=== PATIENT | female | born 1960 | race Caucasian/White ===

== ENCOUNTER 2025-01-31 08:10 | Outpatient (REF) | payer MEDICARE, SELFPAY ==
--- NOTE | 2025-01-31 | PFT_ITS ---
Indication: COPD Spirometry FEV1 to FVC 37%; FEV1 1.15 L; FVC 3.08 L. No significant response to bronchodilators noted Lung Volumes Total lung capacity 102% predicted; residual volume 123% predicted Diffusion Capacity DLCO 40% predicted Comparisons None Interpretation There is an obstructive ventilatory defect consistent with severe COPD. No significant response to bronchodilators noted. There is a trend of air trapping due to the COPD and a severe diffusion impairment. Clinical correlation warranted. MTDD
[2025-01-31 09:00] VITALS: PULSE 83; O2SAT 97
== END 2025-01-31 08:11 | disposition home or self-care (01) ==
LOC: HO.RESP 08:10
PROVIDERS: PCP Nurse Practitioner Family; Visit Provider Nurse Practitioner Family
DX: J44.9 Chronic obstructive pulmonary disease, unspecified (principal); Z87.891 Personal history of nicotine dependence
CPT/HCPCS: 94010; 94640; 94727; 94729

== ENCOUNTER → 2025-01-31 08:15 | Outpatient (BNV) | payer MEDICARE, SELFPAY | PROVIDERS: PCP Nurse Practitioner Family; Visit Provider Hospitalist | DX: J98.4 Other disorders of lung (principal) | CPT/HCPCS: 94060; 94727; 94729 ==